=== PATIENT | female | born 2000 | race Hispanic/Latino ===

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

== ENCOUNTER 2021-02-26 17:33 | Observation (INO) | payer BC, MEDICAID ==
[~2021-02-26] VITALS: Ht 160 cm; Wt 56.7 kg
[2021-02-26 17:35] VITALS: BP 108/71
[2021-02-26 18:31] LABS: APPEARANCE,URINE CLOUDY (CLEAR); BILIRUBIN,URINE SMALL (NEGATIVE); COLOR,URINE YELLOW (YELLOW); GLUCOSE, URINE (UA) NEGATIVE (NEGATIVE); KETONES,URINE 40 mg/dL (NEGATIVE); LEUKOCYTE ESTERASE ,URINE LARGE (NEGATIVE); NITRATE,URINE NEGATIVE (NEGATIVE); OCCULT BLOOD,URINE TRACE-INTACT (NEGATIVE); PROTEIN,URINE 30 mg/dL (NEGATIVE)
[2021-02-26 18:43] LABS: BACTERIA,URINE Few /HPF (None Seen); YEAST,URINE BUDDING Few /HPF (None Seen)
[2021-02-26 18:44] LABS: SQUAMOUS EPITHELIAL CELL,UR Moderate /HPF (0-2)
== END 2021-02-26 18:47 | disposition home or self-care (01) ==
LOC: EDH 17:33 → LDH 17:54
PROVIDERS: ADMIT Obstetrics & Gynecology; ATTEND Obstetrics & Gynecology
DX: O26.893 Other specified pregnancy related conditions, third trimester (principal); N89.8 Other specified noninflammatory disorders of vagina; Z3A.35 35 weeks gestation of pregnancy
CPT/HCPCS: 81001; 87088; G0378

== ENCOUNTER 2021-03-18 16:37 | Observation (INO) | payer BC, MEDICAID ==
[~2021-03-18] VITALS: Ht 160 cm; Wt 59.0 kg
[2021-03-18 16:38] VITALS: BP 106/64
[2021-03-18 16:55] VITALS: BP 106/64
[2021-03-18 17:22] LABS: APPEARANCE,URINE Turbid (CLEAR); BILIRUBIN,URINE Small (NEGATIVE); COLOR,URINE Dark Yellow (YELLOW); GLUCOSE, URINE (UA) Negative (NEGATIVE); KETONES,URINE Trace mg/dL (NEGATIVE); LEUKOCYTE ESTERASE ,URINE Large (NEGATIVE); NITRATE,URINE Negative (NEGATIVE); OCCULT BLOOD,URINE Trace (NEGATIVE); PROTEIN,URINE POS 2+ mg/dL (NEGATIVE)
[2021-03-18 17:46] LABS: BACTERIA,URINE Moderate /HPF (None Seen); MUCUS,URINE Moderate LPF (None Seen); SQUAMOUS EPITHELIAL CELL,UR Moderate /HPF (0-2); WBC,URINE 26-50 /HPF (0-1); YEAST,URINE BUDDING Few /HPF (None Seen)
[2021-03-26] MEDS ORDERED: FERR325T22 PO (18:55)
[2021-03-26] MEDS ORDERED: PREN1TAB80 PO (18:55)
== END 2021-03-18 17:38 | disposition home or self-care (01) ==
LOC: EDH 16:37 → LDH 16:38
PROVIDERS: ADMIT Obstetrics & Gynecology; ATTEND Obstetrics & Gynecology
DX: O62.9 Abnormality of forces of labor, unspecified (principal); Z3A.38 38 weeks gestation of pregnancy; Z79.899 Other long term (current) drug therapy
CPT/HCPCS: 59025; 81001; 87088; G0378

== ENCOUNTER 2022-10-13 19:02 | Observation (INO) | payer BC, MEDICAID ==
[~2022-10-13] VITALS: Ht 160 cm; Wt 55.3 kg
[~2022-10-13 19:02] MED LIST: APIX5TAB PO; DOXY100T2 PO; FERR325T22 PO; PANT40TA PO; PREN1TAB80 PO
[2022-10-13 19:57] LABS: APPEARANCE,URINE CLEAR (CLEAR); BILIRUBIN,URINE NEGATIVE (NEGATIVE); COLOR,URINE YELLOW (YELLOW); GLUCOSE, URINE (UA) NEGATIVE (NEGATIVE); KETONES,URINE NEGATIVE (NEGATIVE); LEUKOCYTE ESTERASE ,URINE 75 Leu/uL (NEGATIVE); NITRATE,URINE NEGATIVE (NEGATIVE); OCCULT BLOOD,URINE MODERATE (NEGATIVE); PH,URINE 6.5 (5.0-8.0); PROTEIN,URINE 30 mg/dL (NEGATIVE)
[2022-10-13 20:05] LABS: AMPHET/METH SCREEN,URINE NEGATIVE (NEGATIVE); BARBITURATE SCREEN, URINE NEGATIVE (NEGATIVE); BENZODIAZEPINES SCREEN,URINE NEGATIVE (NEGATIVE); CANNABINOID SCREEN,URINE NEGATIVE (NEGATIVE); COCAINE SCREEN,URINE NEGATIVE (NEGATIVE); OPIATE SCREEN,URINE NEGATIVE (NEGATIVE); PHENCYCLIDINE SCREEN,URINE NEGATIVE (NEGATIVE)
[2022-10-13 20:13] LABS: MUCUS,URINE RARE LPF (None Seen); SQUAMOUS EPITHELIAL CELL,UR FEW /HPF (0-2)
[2022-10-13 22:03] VITALS: BP 120/68
[2022-10-13] MEDS ORDERED: ENOX60DI7 SQ (22:09)
[2022-10-13] MEDS ORDERED: PREN1TAB80 PO (22:09)
[2022-10-13] MEDS ORDERED: ENOXAPARIN SODIUM 60 MG/0.6 ML SQ ONE (22:30)
== END 2022-10-13 22:40 | disposition home or self-care (01) ==
LOC: EDH 19:02 → LDH 19:03
PROVIDERS: ADMIT Obstetrics & Gynecology; ATTEND Obstetrics & Gynecology
DX: O21.2 Late vomiting of pregnancy (principal); O99.891 Other specified diseases and conditions complicating pregnancy; M79.661 Pain in right lower leg; Z3A.36 36 weeks gestation of pregnancy
CPT/HCPCS: 96372; 96360; 80305; 87088; 81001; 93971; G0378 ×3; G0379; J1650